=== PATIENT | male | born 1950 | race Caucasian/White ===

== ENCOUNTER 2018-07-15 09:43 | Observation (INO) | payer MEDICARE ==
[2018-07-10 11:27] VITALS: BP 132/84
[~2018-07-15] VITALS: Ht 170.2 cm; Wt 110.0 kg
[~2018-07-15 09:43] MED LIST: ASCO500T8 PO; GLIP10TA13 PO; LISI-170 PO; METF10007 PO; MULT1TAB13 PO; NAPR220C2 PO; SIMV20TA3 PO; SITA50TA PO; VITA1TAB19 PO
[2018-07-15] MEDS ORDERED: VANCOMYCIN PMX 1GM/200ML 200 ML IV ONE (10:00)
[2018-07-15] MEDS ORDERED: LACTATED RINGERS 1,000 ML IV SCH (10:00)
[2018-07-15] MEDS ORDERED: MIDAZOLAM 1 MG/ML, 2ML ONE (14:49)
[2018-07-15] MEDS ORDERED: FENTANYL PF 250 MCG/5ML ONE ×2 (14:49→16:57)
[2018-07-15] MEDS ORDERED: morphine SULFATE/PF 1 MG/ML, 10ML ONE (14:54)
[2018-07-15] MEDS ORDERED: KETOROLAC 60 MG/2 ML ONE (14:54)
[2018-07-15] MEDS ORDERED: ROPIvacaine/PF 0.2%, 20 ML ONE (14:54)
[2018-07-15] MEDS ORDERED: SODIUM CHLORIDE 0.9% 100 ML ONE (14:54)
[2018-07-15] MEDS ORDERED: EPINEPHRINE 1 MG/ML, 1ML ONE (14:54)
[2018-07-15] MEDS ORDERED: TRANEXAMIC ACID 100 MG/ML, 10ML ONE (14:54)
[2018-07-15] MEDS ORDERED: BACITRACIN 50,000 UNIT ONE ×2 (14:55→15:51)
[2018-07-15] MEDS ORDERED: DEXAMETHASONE 4 MG/ML, 1ML ONE (15:45)
[2018-07-15] MEDS ORDERED: ONDANSETRON 2MG/ML, 2ML ONE (15:45)
[2018-07-15] MEDS ORDERED: CEFAZOLIN 1,000 MG ONE (15:45)
[2018-07-15] MEDS ORDERED: LABETALOL 20 MG/4 ML ONE (15:45)
[2018-07-15] MEDS ORDERED: PROPOFOL 10 MG/ML, 20ML ONE (15:45)
[2018-07-15] MEDS ORDERED: SUCCINYLCHOLINE 20 MG/ML, 10ML ONE (15:45)
[2018-07-15] MEDS ORDERED: FENTANYL PF 100 MCG/2ML IV PRN (16:30)
[2018-07-15] MEDS ORDERED: LABETALOL 5MG/ML, 20ML IV PRN (16:30)
[2018-07-15] MEDS ORDERED: MEPERIDINE/PF 25MG/0.5ML IVPush PRN (16:30)
[2018-07-15] MEDS ORDERED: OXYcodone 5 MG/5 ML ORAL.SOL UDC PO PRN (16:30)
[2018-07-15] MEDS ORDERED: ALBUTEROL SULFATE 2.5 MG/3 ML NPPB PRN (16:30)
[2018-07-15] MEDS ORDERED: PROMETHAZINE 25 MG/ML, 1ML IV PRN (16:30)
[2018-07-15] MEDS ORDERED: hydrALAzine 20 MG/ML, 1ML IV PRN (16:30)
[2018-07-15] MEDS ORDERED: ACETAMINOPHEN 325 MG TABLET PO PRN ×2 (16:30→18:00)
[2018-07-15] MEDS ORDERED: DIAZEPAM 5 MG/ML, 2ML IVPush PRN (16:30)
[2018-07-15] MEDS ORDERED: DIPHENHYDRAMINE 50 MG CAPSULE PO PRN (18:00)
[2018-07-15] MEDS ORDERED: ZOLPIDEM 5MG TABLET PO PRN (18:00)
[2018-07-15] MEDS ORDERED: TRANEXAMIC ACID 1,000 MG in SODIUM CHLORIDE 0.9% 100 ML IV ONE (18:00)
[2018-07-15] MEDS ORDERED: ONDANSETRON 2MG/ML, 2ML IVPush PRN (18:00)
[2018-07-15] MEDS ORDERED: morphine SULFATE 10 MG/ML, 1ML IVPush PRN (18:00)
[2018-07-15] MEDS ORDERED: LORazepam 2 MG/ML, 1ML IVPush PRN (18:00)
[2018-07-15] MEDS ORDERED: FENTANYL PF 100 MCG/2ML ONE (18:05)
[2018-07-15] MEDS ORDERED: ACETAMINOPHEN 650 MG/20.3 ML UDC ONE (18:05)
[2018-07-15] MEDS ORDERED: OXYcodone 5 MG/5 ML ORAL.SOL UDC ONE (18:05)
[2018-07-15] MEDS: HYDROmorphone 2 MG/ML, 1ML IVPush PRN ×3 (18:40→18:59)
[2018-07-15] MEDS ORDERED: HYDROmorphone 2 MG/ML, 1ML ONE (18:42)
[2018-07-15] MEDS ORDERED: NAPROXEN 500 MG TABLET PO PRN (20:00)
[2018-07-15 20:31] VITALS: BP 97/64
[2018-07-15] MEDS ORDERED: SIMVASTATIN 20 MG TABLET PO SCH (21:00)
[2018-07-15] MEDS: D5%-0.45% NACL 1,000 ML IV SCH (21:50)
[2018-07-15] MEDS: OXYcodone/APAP 7.5/325MG TABLET PO PRN (22:05)
[2018-07-15] MEDS: CEFAZOLIN PMX 1GM/50ML 50 ML IVPB SCH (23:56)
[2018-07-16 00:23] VITALS: BP 109/70
[2018-07-16] MEDS: D5%-0.45% NACL 1,000 ML IV SCH ×3 (02:00→12:00)
[2018-07-16] MEDS: OXYcodone/APAP 7.5/325MG TABLET PO PRN ×3 (02:49→13:31)
[2018-07-16 04:06] VITALS: BP 112/72
[2018-07-16] MEDS: CEFAZOLIN PMX 1GM/50ML 50 ML IVPB SCH (07:43)
[2018-07-16 07:51] VITALS: BP 139/77
[2018-07-16] MEDS ORDERED: metFORMIN 500 MG TABLET PO SCH (08:00)
[2018-07-16] MEDS ORDERED: LINAGLIPTIN 5 MG TAB PO SCH (09:00)
[2018-07-16] MEDS ORDERED: LISINOPRIL 20 MG TABLET PO SCH (09:00)
[2018-07-16] MEDS ORDERED: MULTIVITAMINS/MINERALS TABLET PO SCH (09:00)
[2018-07-16] MEDS ORDERED: MULTIVITS,STRESS FORMULA 1 TABLET PO SCH (09:00)
[2018-07-16] MEDS ORDERED: ASCORBIC ACID 500 MG TABLET PO SCH (09:00)
[2018-07-16] MEDS ORDERED: VANCOMYCIN PMX 1GM/200ML 200 ML IVPB ONE (14:00)
[2018-07-16 14:36] VITALS: BP 125/69
[2018-07-16] MEDS ORDERED: DOCUSATE 100 MG CAPSULE PO SCH (21:00)
[2018-07-17] MEDS ORDERED: ASPIRIN 325 MG TABLET EC PO SCH (08:00)
== END 2018-07-16 15:03 | disposition home or self-care (01) ==
LOC: OUT 09:43 → ORIP 17:55 → 4NOR 19:20 → DCLOUNGE 07-16 14:49
PROVIDERS: ADMIT Orthopaedic Surgery; ATTEND Orthopaedic Surgery
DX: M17.12 Unilateral primary osteoarthritis, left knee (principal)
CPT/HCPCS: 27447; 36415; 73564; 82962; 85018; 87081; 87147; 87806; 96365; 96366; 96367; 96375; 97150; 97161; 97165; C1713; C1776; G0378; J0171; J0330; J0690; J1100; J1170; J1885; J2250; J2270; J2274; J2405; J2704; J2795; J3010; J3370; J3490; J7120; G0475

== ENCOUNTER 2019-09-29 07:29 | Observation (INO) | payer MEDICARE ==
[~2019-09-29] VITALS: Ht 170.2 cm; Wt 112.5 kg
[~2019-09-29 07:29] MED LIST changes: +EPINEPHRINE 1 MG/ML, 1ML ONE; +KETOROLAC 60 MG/2 ML ONE; +ROPIvacaine/PF 0.2%, 20 ML ONE; +SIMV20TA19 PO; -SIMV20TA3 PO; +SODIUM CHLORIDE 0.9% 50 ML ONE; +TRANEXAMIC ACID 100 MG/ML, 10ML ONE; +morphine SULFATE/PF 1 MG/ML, 10ML ONE
[2019-09-29] MEDS ORDERED: VANCOMYCIN PMX 1GM/200ML 200 ML IV STA (07:53)
[2019-09-29 08:04] VITALS: BP 136/87
[2019-09-29] MEDS ORDERED: LACTATED RINGERS 1,000 ML IV SCH (08:04)
[2019-09-29] MEDS ORDERED: FENTANYL PF 250 MCG/5ML ONE ×2 (09:54)
[2019-09-29] MEDS ORDERED: ACETAMINOPHEN 500 MG TABLET ONE ×2 (09:54→09:55)
[2019-09-29] MEDS ORDERED: MIDAZOLAM 1 MG/ML, 2ML ONE ×2 (09:54)
[2019-09-29] MEDS ORDERED: GABAPENTIN 300 MG CAPSULE ONE (09:55)
[2019-09-29] MEDS ORDERED: ONDANSETRON 2MG/ML, 2ML IVPush PRN (10:00)
[2019-09-29] MEDS ORDERED: DIPHENHYDRAMINE 50 MG CAPSULE PO PRN (10:00)
[2019-09-29] MEDS ORDERED: ZOLPIDEM 5MG TABLET PO PRN (10:00)
[2019-09-29] MEDS ORDERED: ACETAMINOPHEN 325 MG TABLET PO PRN (10:00)
[2019-09-29] MEDS ORDERED: LORazepam 2 MG/ML, 1ML IVPush PRN (10:00)
[2019-09-29] MEDS ORDERED: MEPERIDINE/PF 25MG/ML,1ML IVPush PRN (11:00)
[2019-09-29] MEDS ORDERED: OXYcodone 5 MG/5 ML ORAL.SOL UDC PO PRN (11:00)
[2019-09-29] MEDS ORDERED: HYDROmorphone 2 MG/ML, 1ML IVPush PRN (11:00)
[2019-09-29] MEDS ORDERED: HALOPERIDOL 5 MG/ML IV PRN (11:00)
[2019-09-29] MEDS ORDERED: hydrALAzine 20 MG/ML, 1ML IV PRN (11:00)
[2019-09-29] MEDS ORDERED: FENTANYL PF 100 MCG/2ML IV PRN (11:00)
[2019-09-29] MEDS ORDERED: MEPERIDINE/PF 100 MG/ML ONE (11:02)
[2019-09-29] MEDS ORDERED: PROPOFOL 10 MG/ML, 20ML ONE (11:07)
[2019-09-29] MEDS ORDERED: EPINEPHRINE 1 MG/ML, 1ML ONE (11:07)
[2019-09-29] MEDS ORDERED: BUPIVACAINE/PF 0.25% ONE (11:07)
[2019-09-29] MEDS ORDERED: CEFAZOLIN 1,000 MG ONE (11:07)
[2019-09-29] MEDS ORDERED: DEXAMETHASONE 4 MG/ML, 1ML ONE (11:07)
[2019-09-29] MEDS ORDERED: LIDOCAINE-MPF 2% ,5ML ONE (11:07)
[2019-09-29] MEDS ORDERED: SUGAMMADEX 200 MG/2 ML IVPush ONE (11:07)
[2019-09-29] MEDS ORDERED: ONDANSETRON 2MG/ML, 2ML ONE (11:07)
[2019-09-29] MEDS ORDERED: ROCURONIUM 10MG/ML,5ML ONE (11:07)
[2019-09-29] MEDS ORDERED: hydrALAzine 20 MG/ML, 1ML ONE (12:45)
[2019-09-29] MEDS ORDERED: OXYcodone 5 MG/5 ML ORAL.SOL UDC ONE (13:42)
[2019-09-29 14:02] VITALS: BP 148/90
[2019-09-29] MEDS: D5%-0.45% NACL 1,000 ML IV SCH ×3 (14:21→19:57)
[2019-09-29] MEDS ORDERED: TRANEXAMIC ACID 1,000 MG in SODIUM CHLORIDE 0.9% 100 ML IV ONE (14:30)
[2019-09-29] MEDS ORDERED: VANCOMYCIN PMX 1GM/200ML 200 ML IVPB ONE (15:00)
[2019-09-29] MEDS: OXYcodone/APAP 7.5/325MG TABLET PO PRN ×2 (15:20→21:11)
[2019-09-29] MEDS ORDERED: NAPROXEN 500 MG TABLET PO PRN (16:00)
[2019-09-29] MEDS: metFORMIN 500 MG TABLET PO SCH (17:18)
[2019-09-29] MEDS: CEFAZOLIN PMX 2GM/50ML 50 ML IVPB SCH ×2 (17:18→22:50)
[2019-09-29] MEDS ORDERED: SIMVASTATIN 20 MG TABLET PO SCH (21:00)
[2019-09-29 21:10] VITALS: BP 120/74
[2019-09-29] MEDS: morphine SULFATE 10 MG/ML, 1ML IVPush PRN ×2 (22:14→22:50)
[2019-09-29 23:39] VITALS: BP 120/75
[2019-09-30] MEDS: D5%-0.45% NACL 1,000 ML IV SCH ×4 (00:31→15:57)
[2019-09-30 03:02] VITALS: BP 110/73
[2019-09-30] MEDS: OXYcodone/APAP 7.5/325MG TABLET PO PRN ×3 (03:21→13:55)
[2019-09-30] MEDS: CEFAZOLIN PMX 2GM/50ML 50 ML IVPB SCH (06:03)
[2019-09-30 07:41] VITALS: BP 114/74
[2019-09-30] MEDS: metFORMIN 500 MG TABLET PO SCH (07:59)
[2019-09-30] MEDS ORDERED: VANCOMYCIN PMX 1GM/200ML 200 ML IVPB ONE (08:00)
[2019-09-30] MEDS ORDERED: GLIPizide ER 5 MG TABLET PO SCH (08:00)
[2019-09-30] MEDS ORDERED: MULTIVITAMINS/MINERALS TABLET PO SCH (09:00)
[2019-09-30] MEDS ORDERED: MULTIVITS,STRESS FORMULA 1 TABLET PO SCH (09:00)
[2019-09-30] MEDS ORDERED: LISINOPRIL 20 MG TABLET PO SCH (09:00)
[2019-09-30 12:59] VITALS: BP 123/66
[2019-09-30 16:20] VITALS: BP 117/63
[2019-09-30] MEDS ORDERED: ASPIRIN 325 MG TABLET EC PO SCH (17:00)
[2019-09-30] MEDS ORDERED: DOCUSATE 100 MG CAPSULE PO SCH (21:00)
== END 2019-09-30 16:55 | disposition home or self-care (01) ==
LOC: OUT 07:29 → 4NE 14:08 → DCLOUNGE 09-30 16:44
PROVIDERS: ADMIT Orthopaedic Surgery; ATTEND Orthopaedic Surgery
DX: M17.11 Unilateral primary osteoarthritis, right knee (principal); E11.9 Type 2 diabetes mellitus without complications; I10 Essential (primary) hypertension; E78.5 Hyperlipidemia, unspecified; Z79.899 Other long term (current) drug therapy; Z87.891 Personal history of nicotine dependence
CPT/HCPCS: 27447; 36415; 73564; 82962; 85018; 96365; 96366; 96367; 96375; 96376; 97110; 97161; 97165; C1713; C1776; G0378; J0171; J0360; J0690; J1100; J1885; J2175; J2250; J2270; J2274; J2405; J2704; J2795; J3010; J3370; J3490; J7120